=== PATIENT | male | born 1980 | race Caucasian/White ===

== ENCOUNTER → 2018-09-24 | Outpatient (CLI) | payer BC ==
--- NOTE | 2018-09-26 07:44 | MR ---
EXAMINATION TYPE: MR lumbar spine wo con DATE OF EXAM: 09/24/2018 COMPARISON: NONE HISTORY: Low back pain with radiculopathy per order. Chronic low back pain for 15 years into bilatera l calves per patient. TECHNIQUE: Multiplanar, multisequence imaging of the lumbar spine is performed without IV contrast. FINDINGS: Sagittal images of the lumbar spine show vertebral body heights and alignment to appear sat isfactory. There is disc desiccation L4-L5 level with mild disc space narrowing. There is posterior i ncreased signal or annular tear with small posterior disc herniation seen at this level on sagittal i mages. There is moderate disc space narrowing L5-S1 level. The conus medullaris is normal in positio n and signal ending superior L1 level. The bone marrow signal intensity is within normal limits. No significant spurring is seen. Axial images show the T12-L1, L1-L2, and L2-L3 levels all to appear within normal limits. Axial images at the L3-L4 level show mild facet degenerative changes bilaterally but spinal canal is preserved and bilateral neural foramina are patent. Axial images at the L4-L5 level show mild to moderate facet degenerative changes bilaterally. There i s broad-based posterior disc protrusion minimally effacing anterior thecal sac, there is mild bilater al anterior inferior neural foraminal narrowing right greater than left noted. Axial images at the L5-S1 levels show mild facet degenerative changes. No disc herniation, spinal can al effacement, or neural foraminal narrowing is present. No suspicious incidental retroperitoneal findings are seen. IMPRESSION: Multilevel degenerative changes mid to lower lumbar spine most prominent at L4-L5 level a s detailed above.
== END | disposition home or self-care (01) ==
LOC: RADMRIMAIN 15:33
PROVIDERS: ATTEND Family Medicine
DX: M99.73 Connective tissue and disc stenosis of intervertebral foramina of lumbar region (principal); M51.26 Other intervertebral disc displacement, lumbar region; M47.817 Spondylosis without myelopathy or radiculopathy, lumbosacral region
CPT/HCPCS: 72148

== ENCOUNTER → 2022-06-26 | Outpatient (CLI) | payer BC ==
--- NOTE | 2022-06-26 16:53 | MR ---
EXAMINATION TYPE: MR lumbar spine wo con DATE OF EXAM: 06/26/2022 3:15 PM COMPARISON: 09/24/2018. CLINICAL INDICATION:Male, 42 years old with history of M54.50 LOW BACK PAIN; [facility], TECHNIQUE: Multi planar, multi sequence imaging was performed utilizing: T1-weighted, T2-weighted, a nd turbo inversion recovery imaging of the lumbar spine. IV Contrast: None FINDINGS: Alignment: The lumbar vertebral bodies have preserved heights and alignment. Cord: The conus medullaris and the distal spinal cord appear unremarkable with regards to their signa l intensity and morphology. Bones/Discs: Persistent multilevel disc degeneration changes are seen throughout the spine most prono unced at L4-L5. There is multilevel facet joint arthropathy most pronounced in the lower lumbar spine . Disc desiccation at L4-L5. No evidence of bony edema on inversion recovery sequences. L1-L2: No significant disc pathology. Spinal canal is patent. The neural foramen are patent. L2-L3: No significant disc pathology. Spinal canal is patent. The neural foramen are patent. L3-L4: No significant disc pathology. Spinal canal is patent. The neural foramen are patent. L4-L5: Disc extrusion with inferior migration of 3 mm. This examination with facet joint arthropathy result in moderate spinal canal stenosis. There is mild to moderate bilateral neural foraminal stenos is. L5-S1: No significant disc pathology. Spinal canal is patent. The neural foramen are patent. IMPRESSION: L4-L5 central disc herniation with inferior migration with moderate spinal canal stenosis. This has m ildly progressed from 2018 now with moderate spinal canal stenosis.
== END | disposition home or self-care (01) ==
LOC: RADMRIMAIN 14:30
PROVIDERS: ATTEND Family Medicine
DX: M51.26 Other intervertebral disc displacement, lumbar region (principal); M48.061 Spinal stenosis, lumbar region without neurogenic claudication
CPT/HCPCS: 72148

== ENCOUNTER → 2024-11-09 | Outpatient (CLI) | payer BC ==
--- NOTE | 2024-11-09 08:29 | US ---
EXAMINATION TYPE: US kidneys/renal and bladder DATE OF EXAM: 11/09/2024 COMPARISON: NONE CLINICAL INDICATION: Male, 44 years old with history of N20.0 KIDNEY STONE; bilateral flank pain x a couple months TECHNIQUE: Grayscale imaging of the bilateral kidneys and urinary bladder: FINDINGS: EXAM MEASUREMENTS: Right Kidney: 11.1 x 4.7 x 5.3 cm Left Kidney: 10.6 x 5.2 x 6.2 cm Right Kidney: No hydronephrosis or masses seen Left Kidney: cystic area seen mid pole measuring 1.0 x 0.9 x 0.9cm Bladder: bladder wall appears thickened Bilateral Jets seen: yes There is no evidence for hydronephrosis at this point in time. No nephrolithiasis is seen. No jeff s are identified. The urinary bladder is anechoic. IMPRESSION: 1. No evidence for obstructive uropathy or renal process. 2. Left renal cortical probable cyst. 3. Prominent urinary bladder rosario, correlate with urinalysis for cystitis if this concern. This cou ld be due to underdistention. [facility], , 11/09/2024 8:26 AM
== END | disposition home or self-care (01) ==
LOC: RADUSWWP 06:58
PROVIDERS: ATTEND Student in an Organized Health Care Education/Training Program
DX: N20.0 Calculus of kidney (principal)
CPT/HCPCS: 76770

== ENCOUNTER → 2024-11-26 | Outpatient (CLI) | payer BC ==
--- NOTE | 2024-11-29 09:52 | CT ---
EXAMINATION TYPE: CT abdomen pelvis w con DATE OF EXAM: 11/26/2024 8:36 AM COMPARISON: None. CLINICAL INDICATION: Male, 44 years old with history of R10.84,R10.2, left flank pain TECHNIQUE: Axial images were obtained from above the diaphragm to the pubic rami in the axial plane a t 5 mm thick sections. Reconstructed images are reviewed on the computer in the coronal plane. CONTRAST: 100 ml mL of Isovue 300. Study performed with Oral Contrast DLP: 1103.7 mGycm, Automated exposure control for dose reduction was used. FINDINGS: Limited CT sections are obtained the lung bases. The lung bases are clear. CT ABDOMEN: Liver: Normal Spleen: Normal Pancreas: Normal Adrenal glands: The adrenal glands are normal. Gallbladder: Normal Kidneys: No masses are evident. No hydronephrosis is present. Tiny cortical renal cysts present in the lateral mid left kidney No renal stones are evident. Aorta: Normal Inferior vena cava: Normal. CT PELVIS: Loops of bowel within the abdomen and pelvis are normal. Diverticular changes are within the descend ing colon and sigmoid colon. Fecal debris is within the sigmoid colon. There are loops of bowel whi ch are incompletely distended or lack oral contrast limiting their evaluation. Appendix: Normal as visualized. Urinary bladder: Normal. Genitourinary structures: Prostate is normal Osseous structures: No suspicious lytic or sclerotic lesions. IMPRESSION: 1. Diverticulosis without acute diverticulitis. 2. Small cortical renal cyst left kidney. [facility], , 11/29/2024 9:50 AM
== END | disposition home or self-care (01) ==
LOC: RADCTMAIN 06:36
PROVIDERS: ATTEND Student in an Organized Health Care Education/Training Program
DX: N28.1 Cyst of kidney, acquired (principal); K57.30 Diverticulosis of large intestine without perforation or abscess without bleeding
CPT/HCPCS: 74177; Q9967